=== PATIENT | female | born 1965 | race Caucasian/White ===

== ENCOUNTER 2025-01-30 21:39 | Emergency (ER) | payer OTHER ==
[~2025-01-30] VITALS: Ht 167.6 cm; Wt 69.7 kg
[2025-01-30] MEDS ORDERED: TRAZODONE HCL50 MG (21:55)
[2025-01-30] MEDS ORDERED: BUPROPION HCL150 M2 PO (22:03)
[2025-01-30] MEDS ORDERED: CITALOPRAM HBR20 MG PO (22:03)
[2025-01-30] MEDS ORDERED: LEVOTHYROXINE125 MCG PO (22:04)
[2025-01-30] MEDS ORDERED: HYDROCODONE/ACETA 7.5/325 TAB PO ONE (22:15)
[2025-01-30] MEDS ORDERED: HYDROCODONE BIT/ACETAMINOPHEN 5/325 MG 1 TAB HOME.PACK PO ONE (22:45)
[2025-01-30] MEDS ORDERED: HYDROCODON-ACE1 EA10 PO (22:50)
[2025-01-30] MEDS ORDERED: KETOROLAC TROMETHAMINE 30 MG/ML VIAL IM ONE (23:00)
[2025-01-30 23:29] VITALS: BP 146/89
== END 2025-01-30 23:31 | disposition home or self-care (01) ==
LOC: ED 21:39
DX: S42.291A Other displaced fracture of upper end of right humerus, initial encounter for closed fracture (principal); W01.0XXA Fall on same level from slipping, tripping and stumbling without subsequent striking against object, initial encounter; Z88.2 Allergy status to sulfonamides; Z79.890 Hormone replacement therapy
CPT/HCPCS: 73030; 96372; 99283; A9270; J1885